=== PATIENT | male | born 1960 | race Caucasian/White ===

== ENCOUNTER → 2018-06-21 | Outpatient (CLI) | payer BC ==
--- NOTE | 2018-06-28 09:48 | PCVCIMAG ---
APPROVED REPORT Patient Location: Room #: Stress Nurse: Resting EKG: Sinus rhythm normal tracing Angelo Keen exercised for 10:41 minutes on a standard [place] protocol and achieved 171 bpm or 100% of his maximal predicted heart rate for age. The pretest blood pressure was 104/70 and sandra with exercise to 144/70. He stopped exercising due to dyspnea and fatigue. The stress electrocardiogram demonstrated no dysrhythmias. There were no ST segment shifts diagnostic of myocardial ischemia. Conclusion 1. Maximal treadmill exercise study negative for exercise-induced myocardial ischemia. Low Zavaleta treadmill exercise score. 2. No subjective signs of ischemia such as chest pain or anginal-like symptoms. Good exercise capacity (13.4 METS)
== END | disposition home or self-care (01) ==
LOC: PCVCIMAG 16:52
PROVIDERS: ATTEND Internal Medicine
DX: I71.2 Thoracic aortic aneurysm, without rupture (principal)
CPT/HCPCS: 93017